=== PATIENT | male | born 1985 | race African-American/Black ===

== ENCOUNTER 2016-12-16 22:53 | Emergency (ER) | payer SELFPAY ==
[~2016-12-16] VITALS: Ht 190.5 cm; Wt 97.0 kg
[2016-12-16 23:07] VITALS: BP 142/95; PULSE 88; RESP 14; TEMP 99; O2SAT 99
[2016-12-17] MEDS ORDERED: IBUP200C PO (00:14)
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
== END 2016-12-17 00:36 | disposition left against medical advice (07) ==
LOC: NEPD 22:53
DX: M54.9 Dorsalgia, unspecified (principal); G89.29 Other chronic pain; F17.200 Nicotine dependence, unspecified, uncomplicated
CPT/HCPCS: 99281

== ENCOUNTER 2016-12-17 10:00 | Emergency (ER) | payer SELFPAY ==
[~2016-12-17] VITALS: Ht 190.5 cm; Wt 97.5 kg
[~2016-12-17 10:00] MED LIST: IBUP200C PO
[2016-12-17 10:02] VITALS: BP 145/85; PULSE 86; RESP 16; TEMP 98.5; O2SAT 99
[2016-12-17 10:50] LABS: AUTOMATED NEUTROPHIL # 1.9 TH/MM3 (1.8-7.7); BASOPHIL % 0.1 % (0.0-2.0); EOSINOPHIL # 0.2 TH/MM3 (0-0.4); EOSINOPHIL % 5.3 % (0.0-4.0); HEMATOCRIT 38.2 % (39.0-51.0); HEMO FLAGS DIFF FINAL; LYMPH % 36.5 % (9.0-44.0); LYMPHOCYTE # 1.4 TH/MM3 (1.0-4.8); MEAN CELL VOLUME 87.6 FL (80.0-100.0); MEAN CORPUSCULAR HGB CONC 34.3 % (32.0-36.0); MONO % 9.3 % (0.0-8.0); NEUT % 48.8 % (16.0-70.0); PLATELET COUNT 105 TH/MM3 (150-450); RED BLOOD COUNT 4.36 MIL/MM3 (4.50-5.90); RED CELL DISTRIBUTION WIDTH 13.7 % (11.6-17.2); WHITE BLOOD COUNT 3.9 TH/MM3 (4.0-11.0)
--- NOTE | 2016-12-17 10:52 | PD ---
HPI Chief Complaint: Psychiatric Symptoms Time Seen by Provider: 10:26 Travel History International Travel<30 days: No Contact w/Intl Traveler<30days: No Traveled to known affect area: No History of Present Illness HPI Patient is a 31-year-old male who presents to emergency room for psychiatric evaluation. Patient reports that his friends have been telling him that he is paranoid and need psychiatric evaluation, patient believes that there are people following him and trying to kidnap him. His friends tell him that no one is following him and that it's "all in your head." He was told that he needed psychiatric evaluation, patient is here for psychiatric evaluation. Patient denies currently any suicidal or homicidal ideations. Patient does use marijuana, patient denies a psychiatric diagnosis. PFSH Past Medical History Hx Anticoagulant Therapy: No Cardiovascular Problems: No Chemotherapy: No Cerebrovascular Accident: No Diabetes: No Hypertension: Yes Respiratory: No Social History Alcohol Use: No Tobacco Use: Yes (1 PPD) Substance Use: Yes (marijuana) Allergies-Medications (Allergen,Severity, Reaction): Coded Allergies: No Known Allergies (Unverified , 12/16/16) Reported Meds & Prescriptions Reported Meds & Active Scripts Active No Active Prescriptions or Reported Medications Review of Systems General / Constitutional: No: Fever Eyes: No: Visual changes HENT: No: Headaches Cardiovascular: No: Chest Pain or Discomfort Respiratory: No: Shortness of Breath Gastrointestinal: No: Abdominal Pain Genitourinary: No: Dysuria Musculoskeletal: No: Pain Skin: No Rash Neurologic: No: Weakness Psychiatric: Positive: Mood Disorder, Substance Abuse, No: Depression, Suicidal Ideations, Homicidal Ideation Endocrine: No: Polydipsia Hematologic/Lymphatic: No: Easy Bruising Physical Exam Narrative GENERAL: No acute distress, nontoxic SKIN: Focused skin assessment warm/dry. HEAD: Atraumatic. Normocephalic. EYES: Pupils equal and round. No scleral icterus. No injection or drainage. ENT: No nasal bleeding or discharge. Mucous membranes pink and moist. NECK: Trachea midline. No JVD. CARDIOVASCULAR: Regular rate and rhythm. No murmur appreciated. RESPIRATORY: No accessory muscle use. Clear to auscultation. Breath sounds equal bilaterally. GASTROINTESTINAL: Abdomen soft, non-tender, nondistended. Hepatic and splenic margins not palpable. MUSCULOSKELETAL: No obvious deformities. No clubbing. No cyanosis. No edema. NEUROLOGICAL: Awake and alert. No obvious cranial nerve deficits. Motor grossly within normal limits. Normal speech. PSYCHIATRIC: Anxious mood and affect, denies suicidal or homicidal ideations Data Data Last Documented VS Vital Signs Date Time Temp Pulse Resp B/P (MAP) Pulse Ox O2 Delivery O2 Flow Rate FiO2 12/17/16 10:02 98.5 86 16 145/85 (105) 99 Orders Orders Complete Blood Count With Diff (12/17/16 10:26) Comprehensive Metabolic Panel (12/17/16 10:26) Psych Screen (12/17/16 10:26) Drug Screen, Random Urine (12/17/16 10:26) Alcohol (Ethanol) (12/17/16 10:26) Salicylates (Aspirin) (12/17/16 10:26) Tylenol (Acetaminophen) (12/17/16 10:26) Potassium Chloride (Kcl) (12/17/16 11:30) Labs Laboratory Tests Test 12/17/16 10:32 White Blood Count 3.9 TH/MM3 Red Blood Count 4.36 MIL/MM3 Hemoglobin 13.1 GM/DL Hematocrit 38.2 % Mean Corpuscular Volume 87.6 FL Mean Corpuscular Hemoglobin 30.0 PG Mean Corpuscular Hemoglobin Concent 34.3 % Red Cell Distribution Width 13.7 % Platelet Count 105 TH/MM3 Mean Platelet Volume 11.2 FL Neutrophils (%) (Auto) 48.8 % Lymphocytes (%) (Auto) 36.5 % Monocytes (%) (Auto) 9.3 % Eosinophils (%) (Auto) 5.3 % Basophils (%) (Auto) 0.1 % Neutrophils # (Auto) 1.9 TH/MM3 Lymphocytes # (Auto) 1.4 TH/MM3 Monocytes # (Auto) 0.4 TH/MM3 Eosinophils # (Auto) 0.2 TH/MM3 Basophils # (Auto) 0.0 TH/MM3 CBC Comment DIFF FINAL Differential Comment Blood Urea Nitrogen 14 MG/DL Creatinine 0.90 MG/DL Random Glucose 102 MG/DL Total Protein 7.0 GM/DL Albumin 3.7 GM/DL Calcium Level 8.4 MG/DL Alkaline Phosphatase 80 U/L Aspartate Amino Transf (AST/SGOT) 20 U/L Alanine Aminotransferase (ALT/SGPT) 21 U/L Total Bilirubin 0.8 MG/DL Sodium Level 140 MEQ/L Potassium Level 3.2 MEQ/L Chloride Level 104 MEQ/L Carbon Dioxide Level 29.9 MEQ/L Anion Gap 6 MEQ/L Estimat Glomerular Filtration Rate 118 ML/MIN Salicylates Level LESS THAN 1.7 MG/DL Acetaminophen Level LESS THAN 2.0 MCG/ML Ethyl Alcohol Level LESS THAN 3 MG/DL MDM Medical Decision Making Medical Screen Exam Complete: Yes Emergency Medical Condition: Yes Medical Record Reviewed: Yes Interpretation(s) Vital Signs Date Time Temp Pulse Resp B/P (MAP) Pulse Ox O2 Delivery O2 Flow Rate FiO2 12/17/16 10:02 98.5 86 16 145/85 (105) 99 Differential Diagnosis Depression, paranoia Narrative Course Psychiatric screening labs are ordered, plan to observe patient at this time. Patient denies any suicidal or homicidal ideations, patient contracts for safety. Scripts No Active Prescriptions or Reported Meds Sherice Munoz DO Dec 17, 2016 10:52
[2016-12-17 11:13] LABS: ALT (GPT) 21 U/L (12-78); ANION GAP 6 MEQ/L (5-15); AST (GOT) 20 U/L (15-37); BICARBONATE 29.9 MEQ/L (21.0-32.0); BLOOD UREA NITROGEN 14 MG/DL (7-18); CHLORIDE 104 MEQ/L (98-107); GLOMERULAR FILTRATION RATE 118 ML/MIN (>89); POTASSIUM 3.2 MEQ/L (3.5-5.1); SODIUM (NA) 140 MEQ/L (136-145)
[2016-12-17 11:15] LABS: ACETAMINOPHEN LESS THAN 2.0 MCG/ML (10.0-30.0); ALKALINE PHOSPHATASE 80 U/L (45-117); TOTAL BILIRUBIN ADULT 0.8 MG/DL (0.2-1.0)
[2016-12-17 11:24] LABS: ALCOHOL LESS THAN 3 MG/DL (0-5)
[2016-12-17] MEDS ORDERED: POTASSIUM CHLORIDE 10 MEQ CONTROLLED RELEASE TAB PO ONE (11:30)
[2016-12-17 16:00] VITALS: BP 140/78; PULSE 78; RESP 16; O2SAT 98
[2016-12-17 22:42] VITALS: BP 164/102; PULSE 62; RESP 16; TEMP 97.8; O2SAT 100
[2016-12-18 06:06] VITALS: BP 148/85; PULSE 69; O2SAT 100
[2016-12-18] MEDS ORDERED: ACETAMINOPHEN 325 MG TAB PO ONE (09:15)
[2016-12-18 10:52] VITALS: BP 150/85; PULSE 72; O2SAT 100
[2016-12-18 13:52] VITALS: BP 152/88; PULSE 65; O2SAT 100
--- NOTE | 2016-12-18 16:47 | PD ---
Data Data Last Documented VS Vital Signs Date Time Temp Pulse Resp B/P (MAP) Pulse Ox O2 Delivery O2 Flow Rate FiO2 12/18/16 15:46 12/18/16 13:52 65 100 Room Air 12/17/16 22:42 97.8 16 Orders Orders Complete Blood Count With Diff (12/17/16 10:26) Comprehensive Metabolic Panel (12/17/16 10:26) Psych Screen (12/17/16 10:26) Drug Screen, Random Urine (12/17/16 10:26) Alcohol (Ethanol) (12/17/16 10:26) Salicylates (Aspirin) (12/17/16 10:26) Tylenol (Acetaminophen) (12/17/16 10:26) Potassium Chloride (Kcl) (12/17/16 11:30) Acetaminophen (Tylenol) (12/18/16 09:15) Diet Regular Basic (12/18/16 Lunch) Labs Laboratory Tests Test 12/17/16 10:32 12/17/16 17:40 White Blood Count 3.9 TH/MM3 Red Blood Count 4.36 MIL/MM3 Hemoglobin 13.1 GM/DL Hematocrit 38.2 % Mean Corpuscular Volume 87.6 FL Mean Corpuscular Hemoglobin 30.0 PG Mean Corpuscular Hemoglobin Concent 34.3 % Red Cell Distribution Width 13.7 % Platelet Count 105 TH/MM3 Mean Platelet Volume 11.2 FL Neutrophils (%) (Auto) 48.8 % Lymphocytes (%) (Auto) 36.5 % Monocytes (%) (Auto) 9.3 % Eosinophils (%) (Auto) 5.3 % Basophils (%) (Auto) 0.1 % Neutrophils # (Auto) 1.9 TH/MM3 Lymphocytes # (Auto) 1.4 TH/MM3 Monocytes # (Auto) 0.4 TH/MM3 Eosinophils # (Auto) 0.2 TH/MM3 Basophils # (Auto) 0.0 TH/MM3 CBC Comment DIFF FINAL Differential Comment Blood Urea Nitrogen 14 MG/DL Creatinine 0.90 MG/DL Random Glucose 102 MG/DL Total Protein 7.0 GM/DL Albumin 3.7 GM/DL Calcium Level 8.4 MG/DL Alkaline Phosphatase 80 U/L Aspartate Amino Transf (AST/SGOT) 20 U/L Alanine Aminotransferase (ALT/SGPT) 21 U/L Total Bilirubin 0.8 MG/DL Sodium Level 140 MEQ/L Potassium Level 3.2 MEQ/L Chloride Level 104 MEQ/L Carbon Dioxide Level 29.9 MEQ/L Anion Gap 6 MEQ/L Estimat Glomerular Filtration Rate 118 ML/MIN Salicylates Level LESS THAN 1.7 MG/DL Acetaminophen Level LESS THAN 2.0 MCG/ML Ethyl Alcohol Level LESS THAN 3 MG/DL Urine Opiates Screen NEG Urine Barbiturates Screen NEG Urine Amphetamines Screen NEG Urine Benzodiazepines Screen NEG Urine Cocaine Screen NEG Urine Cannabinoids Screen POS MDM Medical Record Reviewed: Yes Supervised Visit with ROCÍO: No Narrative Course Patient is a 31-year-old male who presented to the emergency room for psychiatric evaluation. Patient denies suicidal or homicidal lesion, patient was seen by a psychiatric screener, was deemed safe to be discharged home. He is not a threat to himself or to others. Patient was given outpatient resources for follow-up. Patient at this time denies suicidal or homicidal lesions, patient wishes to be discharged home. Patient understands that he may return to the ER at any time for re-evaluation of symptoms. Referrals: [facility] (Out patient) Patient Instructions: General Instructions Additional Instruction: Please follow up with your psychiatrist as soon as possible Return to the ER if symptoms worsen or progress Return to the ER as needed Scripts No Active Prescriptions or Reported Meds Disposition: 01 DISCHARGE HOME Condition: Stable Sherice Munoz DO Dec 18, 2016 16:47
== END 2016-12-18 17:04 | disposition home or self-care (01) ==
LOC: NEPD 10:00
DX: Z04.6 Encounter for general psychiatric examination, requested by authority (principal); I10 Essential (primary) hypertension; Z72.0 Tobacco use
CPT/HCPCS: 80053; 80307; 85025; 99283